=== PATIENT | male | born 1965 | race Two or more races ===

== ENCOUNTER 2022-01-20 16:25 | Emergency (ER) | payer OTHER, SELFPAY ==
[2022-01-20 17:00] VITALS: BP 138/79; PULSE 75; RESP 20; TEMP 36.4; O2SAT 98; BMI 30.9
--- NOTE | 2022-01-20 20:03 | ED_ITS ---
HPI - General Adult General Chief complaint: Wound/Laceration Stated complaint: hand lac. Time Seen by Provider: 01/20/22 19:16 Source: patient Mode of arrival: ambulatory Limitations: no limitations History of Present Illness HPI narrative: 56-year-old male presents to ED for left palm laceration in between thumb and index finger. Patient states he was trying to open the plastic and Biaxin he comes self with knife. Patient states up-to-date with tetanus. Patient denies any other trauma. Patient does complete range of motion of all fingers and sensation. Patient denies any squirting bleeding Related Data Previous Rx's Medication Instructions Recorded cephalexin 500 mg capsule 500 mg PO QID 7 days #28 caps 01/20/22 doxycycline hyclate 100 mg capsule 100 mg PO BID 7 days #14 caps 01/20/22 naproxen 500 mg tablet 500 mg PO BID PRN pain 7 days #14 01/20/22 tabs Allergies Allergy/AdvReac Type Severity Reaction Status Date / Time No Known Allergies Allergy Verified 01/20/22 17:02 Review of Systems Review of Systems: Left hand laceration [facility] Social History Social History Advance Directives: No Advance Directives Information Provided: No Physical Exam ED Vital Signs: Vital Signs - 24 hr 01/20/22 17:00 Temperature 97.5 F Pulse Rate 75 Respiratory Rate 20 Blood Pressure 138/79 Pulse Oximetry 98 Oxygen Delivery Method Room Air BMI result Body Mass Index 30.9 Const General: cooperative, healthy appearing, comfortable, no acute distress, well developed, alert, awake and Physically active Orientation/consciousness: patient oriented x3 HENMT Head: Yes normal to inspection, Yes No palpable skull fracture present, Yes normocephalic, Yes atraumatic and No abrasion Eyes General: appearance normal, both eyes and all related structures Neck Neck: Yes normal visual inspection, Yes full ROM, Yes no lymphadenopathy, Yes no meningeal signs, Yes trachea midline, Yes supple, No anterior neck swelling and No tender Chest Chest palpation & inspection: normal inspection of the chest and normal palpation of entire chest wall Resp Effort & Inspection: normal respiratory effort and able to speak in complete sentences Auscultation: clear to auscultation bilaterally Cardio Jugular venous distension: no JVD Heart sounds: S1 normal heart sound present and S2 normal heart sound present GI Inspection: Yes normal to inspection and No abdominal wall ecchymosis Palpation (GI): Soft to palpation, not firm, nontender, no guarding and not rigid General: No CVA tenderness and Yes no CVA tenderness Back/Spine/Pelvis Back: no CVA tenderness, No CVA tenderness and No back tenderness Skin General skin exam: no rashes or lesions noted and elasticity normal Neuro General: patient oriented x3, gait normal, no meningeal signs and CN's II-XI intact bilaterally Cranial nerves: Yes CN's II-XII intact bilaterally Extrem General: Yes normal to inspection and Yes full ROM Hand/finger images: 1. Positive for laceration. Negative for profuse bleeding. Patient has complete range of motion of all fingers and sensation. Patient able to make a clenched fist. Motor/neuro/vascular exam of extremity intact Psych Appearance: grossly normal, well kempt and not disheveled Course Course Course Narrative: Will proceed with laceration repair Reevaluation(s) Reevaluation #1: 6 mL of lidocaine 1% was used for anesthesia. Wound including Betadine iodine and saline. Size 3 nylon sutures were used. Three sutures were placed. Patient will be discharged with antibiotics. Patient up-to-date with tetanus Time: 20:24 Medical Decision Making [facility] Narrative Medical decision making narrative: Hand laceration Discharge Plan Discharge Clinical Impression: Laceration Patient Disposition: Home, Self-Care Instructions: Laceration (ED) Additional Instructions: Sutures should be removed in 10-11 days. Return to the ED immediately for any swelling, redness, pus discharge, foul odor, fever, chills, bluish black discoloration, or any other concerning symptoms. He will be discharged with antibiotics to hand laceration caused by daily knife. Prescriptions: New naproxen 500 mg tablet 500 mg PO BID PRN (Reason: pain) 7 Days Qty: 14 0RF cephalexin 500 mg capsule 500 mg PO QID 7 Days Qty: 28 0RF doxycycline hyclate 100 mg capsule 100 mg PO BID 7 Days Qty: 14 0RF Stand Alone Forms: Work/School Release Interventions: ED Discharge Assessment Last Done: 01/20/22 20:45 Discharge Date/Time: 01/20/22 20:45 Print Language: Azeri
[2022-01-20] MEDS: Lidocaine HCl 1 % MPF 2 ML VIAL INFILTRATI ×3 (20:07→20:08)
--- NOTE | 2022-01-20 20:44 | PC.NURSE ---
Applied bacitracin to laceration site and wrapped with gauze and bella bandage per mlp verbal order. Discharge instructions provided to pt and advised to have sutures removed within 10-14 days as ordered. Pt verbalizes understanding.
== END 2022-01-20 20:45 | disposition home or self-care (01) ==
PROVIDERS: Emergency Provider Emergency Medicine
DX: S61.412A Laceration without foreign body of left hand, initial encounter (principal); W26.0XXA Contact with knife, initial encounter; Y93.89 Activity, other specified; Y92.019 Unspecified place in single-family (private) house as the place of occurrence of the external cause; Y99.9 Unspecified external cause status
CPT/HCPCS: 12001; 99282; 99284